=== PATIENT | male | born 1950 | race Asian ===

== ENCOUNTER → 2016-04-02 | Outpatient (CLI) | payer BC ==
--- NOTE | 2016-04-02 16:54 | DIAGNOSTIC IMAGING REPORT ---
RIGHT HAND 3 VIEWS CLINICAL HISTORY: Right hand pain. Fall. FINDINGS: 3 views of the right hand are obtained. No prior studies are available for comparison at the time of dictation. The skeletal structures are well mineralized. There is a horizontally oriented and minimally angulated fracture through the distal shaft of the fifth metacarpal with overlying soft tissue edema. No additional fracture is seen. The joint spaces of the hand appear preserved. IMPRESSION: Minimally angulated fracture through the distal shaft of the fifth metacarpal with overlying soft tissue edema. Electronically signed by: Rocco Conti M.D. 04/02/2016 4:52 PM Dictated Date/Time: 04/02/2016 4:51 PM
== END | disposition home or self-care (01) ==
LOC: C.RAD 16:35
PROVIDERS: ATTEND Family Medicine
DX: S62.326A Displaced fracture of shaft of fifth metacarpal bone, right hand, initial encounter for closed fracture (principal); X58.XXXA Exposure to other specified factors, initial encounter

== ENCOUNTER → 2016-04-10 | Outpatient (CLI) | payer BC | END | disposition home or self-care (01) | LOC: C.RDSM 13:50 | PROVIDERS: ATTEND Orthopaedic Surgery Sports Medicine | DX: T14.8 Other injury of unspecified body region (principal); X58.XXXA Exposure to other specified factors, initial encounter ==

== ENCOUNTER → 2016-04-26 | Outpatient (CLI) | payer BC | END | disposition home or self-care (01) | LOC: C.RDSM 16:15 | PROVIDERS: ATTEND Orthopaedic Surgery Sports Medicine | DX: Z09 Encounter for follow-up examination after completed treatment for conditions other than malignant neoplasm (principal) ==

== ENCOUNTER → 2017-02-27 | Outpatient (CLI) | payer BC ==
--- NOTE | 2017-02-27 08:45 | DIAGNOSTIC IMAGING REPORT ---
BILIARY ULTRASOUND CLINICAL HISTORY: CHRONIC VIRAL HEP B W/OUT [facility] AGENT COMPARISON STUDY: 11/10/2015 FINDINGS: The pancreas appears sonographically normal. There is no ductal dilatation. The common bile duct measures 3 mm. There is coarsened hepatic echotexture. No solid hepatic masses are visualized. There are several hepatic cysts the largest of which measures 15 mm and is located within the right lobe. No gallstones are visualized. There is a subtle nodular focus within the gallbladder fundus, likely representing adenomyomatosis. This is slightly less pronounced than on the preceding study. There is no right-sided hydronephrosis IMPRESSION: 1. Small hepatic cysts. No solid hepatic masses identified 2. Persistent nodular focus at the gallbladder fundus likely representing adenomyomatosis 3. No ductal dilatation Electronically signed by: Ke Locke M.D. 02/27/2017 8:44 AM Dictated Date/Time: 02/27/2017 8:42 AM
== END | disposition home or self-care (01) ==
LOC: C.ULTRBC 07:56
PROVIDERS: ATTEND Nurse Practitioner Family
DX: K76.89 Other specified diseases of liver (principal); B18.1 Chronic viral hepatitis B without delta-agent